=== PATIENT | female | born 1945 | race Asian ===

== ENCOUNTER 2025-06-07 15:48 | Emergency (ER) | payer MEDICARE, OTHER ==
[~2025-06-07] VITALS: Ht 142.2 cm; Wt 50.8 kg
[2025-06-07 17:50] VITALS: BP 138/72; TEMP 98; O2SAT 99
== END 2025-06-07 17:50 | disposition home or self-care (01) ==
LOC: ER 15:54
DX: I87.2 Venous insufficiency (chronic) (peripheral) (principal); M06.9 Rheumatoid arthritis, unspecified; Z88.5 Allergy status to narcotic agent
CPT/HCPCS: 93970-TC